=== PATIENT | male | born 1995 | race Two or more races ===

== ENCOUNTER 2016-11-22 14:58 | Emergency (ER) | payer MEDICAID ==
[2016-11-22 16:41] LABS: BASOPHILS 0.2 % (0-2); EOSINOPHILS 0.4 % (0-7); HEMATOCRIT 45.4 % (42.0-54.0); HEMOGLOBIN 15.8 g/dL (13.5-17.5); IMMATURE GRANULOCYTES 0.4 % (0-5); LYMPHOCYTES 11.1 % (15-50); MCH 31.2 pg (26.0-34.0); MCHC 34.8 g/dL (31.0-37.0); MCV 89.5 fL (80.0-100.0); MEAN PLATELET VOLUME 9.9 fL (7.4-10.4); NEUTROPHILS 79.9 % (40-80); PLATELET COUNT 229 10x3/uL (130-400); RBC 5.07 10x6/uL (4.20-6.10); RDW 12.2 % (11.5-14.5); WBC 16.1 10x3/uL (4.8-10.8)
[2016-11-22 17:13] LABS: ALBUMIN 4.8 g/dL (3.4-5.0); ALKALINE PHOSPHATASE 74 U/L (46-116); ALT (SGPT) 70 U/L (10-68); CALC OSMOLALITY 277 mosm/kg (275-300); CALCIUM 9.6 mg/dL (8.5-10.1); CARBON DIOXIDE 22.6 mmol/L (21.0-32.0); CHLORIDE - SERUM 102 mmol/L (98-107); CREATININE - SERUM 1.2 mg/dL (0.6-1.3); GLUCOSE 75 mg/dL (74-106); POTASSIUM - SERUM 4.3 mmol/L (3.5-5.1); PROTEIN - SERUM 8.2 g/dL (6.4-8.2); SODIUM 140 mmol/L (136-145); UREA NITROGEN 12 mg/dL (7-18); VALPROIC ACID (DEPAKOTE) 3.7 ug/mL (50.0-100.0); eGFR NON AFRICAN AMERICAN 80 mL/min (90-120)
== END 2016-11-22 18:42 | disposition home or self-care (01) ==
LOC: D.ER 14:58
PROVIDERS: Emergency Medicine
DX: R56.9 Unspecified convulsions (principal)

== ENCOUNTER 2019-02-16 20:51 | Emergency (ER) | payer OTHER, MEDICAID ==
[~2019-02-16] VITALS: Ht 167.6 cm; Wt 84.5 kg
[2019-02-16 20:53] VITALS: Ht 167.6 cm; Wt 84.5 kg
[2019-02-16] MEDS ORDERED: KEPPRA250 MG PO (20:55)
[2019-02-16 21:48] LABS: BASOPHILS 0.2 % (0-2); EOSINOPHILS 1.1 % (0-7); HEMOGLOBIN 16.4 g/dL (13.5-17.5); IMMATURE GRANULOCYTES 0.5 % (0-5); LYMPHOCYTES 26.8 % (15-50); MCH 31.2 pg (26.0-34.0); MCHC 35.7 g/dL (31.0-37.0); MCV 87.5 fL (80.0-100.0); MEAN PLATELET VOLUME 9.1 fL (7.4-10.4); MONOCYTES 6.7 % (2-11); NEUTROPHILS 64.7 % (40-80); PLATELET COUNT 287 10x3/uL (130-400); RBC 5.26 10x6/uL (4.20-6.10); WBC 9.5 10x3/uL (4.8-10.8)
[2019-02-16 22:02] LABS: CALC OSMOLALITY 279 mosm/kg (275-300); CALCIUM 9.4 mg/dL (8.5-10.1); CARBON DIOXIDE 24.3 mmol/L (21.0-32.0); CHLORIDE - SERUM 102 mmol/L (98-107); CREATININE - SERUM 1.2 mg/dL (0.6-1.3); GLUCOSE 102 mg/dL (74-106); POTASSIUM - SERUM 4.3 mmol/L (3.5-5.1); SODIUM 140 mmol/L (136-145); UREA NITROGEN 16 mg/dL (7-18); eGFR NON AFRICAN AMERICAN 78 mL/min (90-120)
[2019-02-16 22:08] LABS: ALBUMIN 4.7 g/dL (3.4-5.0); ALKALINE PHOSPHATASE 73 U/L (46-116); ALT (SGPT) 72 U/L (10-68); BILIRUBIN - TOTAL 0.31 mg/dL (0.2-1.3); MAGNESIUM - SERUM 2.5 mg/dL (1.8-2.4); PROTEIN - SERUM 8.9 g/dL (6.4-8.2)
[2019-02-16] MEDS ORDERED: HYDROCODON-ACE1 EAC7 PO (22:42)
[2019-02-16 22:56] VITALS: BP 119/80
== END 2019-02-16 22:56 | disposition home or self-care (01) ==
LOC: D.ER 20:51
PROVIDERS: Family Medicine
DX: M54.5 Low back pain (principal); G40.909 Epilepsy, unspecified, not intractable, without status epilepticus; V89.2XXA Person injured in unspecified motor-vehicle accident, traffic, initial encounter; Y93.9 Activity, unspecified; Y92.9 Unspecified place or not applicable